=== PATIENT | female | born 1980 | race African-American/Black ===

== ENCOUNTER 2019-09-01 11:00 | Emergency (ER) | payer MEDICAID, OTHER ==
[~2019-09-01] VITALS: Ht 167.6 cm; Wt 100.0 kg
[2019-09-01 12:22] LABS: BASOPHILS % 0.8 % (0.0-2.0); EOSINOPHILS % 5.1 % (0.0-5.0); HEMATOCRIT. 36.7 % (36.0-48.0); HEMOGLOBIN. 12.5 g/dL (12.0-16.0); LYMPHOCYTES % 40.3 % (20.0-50.0); MEAN CORPUSCULAR HEMOGLOBIN 31.6 pg (28.0-32.0); MEAN CORPUSCULAR VOLUME 92.3 fL (81.0-99.0); MEAN PLATELET VOLUME 7.5 fl (7.4-10.4); MONOCYTES % 8.8 % (2.0-8.0); PLATELET 278 x1000/uL (130-400); RED BLOOD CELL COUNT 3.97 mill/uL (4.2-5.4)
[2019-09-01 12:25] LABS: CLARITY URINE TURBID (CLEAR); COLOR URINE DARK YELLOW (YELLOW); KETONES URINE TRACE (NEGATIVE); LEUKOCYTE ESTERASE URINE 2+ (NEGATIVE); NITRITE URINE POSITIVE (NEGATIVE); OCCULT BLOOD URINE 3+ (NEGATIVE); PH URINE 6.5 (4.5-8.0); PROTEIN URINE 1+ (NEGATIVE); SPECIFIC GRAVITY URINE 1.033 (1.005-1.030)
[2019-09-01 12:28] LABS: CHLORIDE 105 mEq/L (98-107)
[2019-09-01 12:38] LABS: B-HCG QUANTITATIVE 39 mIU/mL (<3)
[2019-09-01 14:47] VITALS: BP 118/75
== END 2019-09-01 14:49 | disposition home or self-care (01) ==
LOC: ER 11:00
DX: O20.0 Threatened abortion (principal); O99.611 Diseases of the digestive system complicating pregnancy, first trimester; N30.00 Acute cystitis without hematuria; O34.11 Maternal care for benign tumor of corpus uteri, first trimester; O26.891 Other specified pregnancy related conditions, first trimester; Z3A.01 Less than 8 weeks gestation of pregnancy; Z88.8 Allergy status to other drugs, medicaments and biological substances; Z98.890 Other specified postprocedural states
CPT/HCPCS: 36415; 76830; 76856; 81003; 81025; 84702; 86850; 86900; 87077; 87186; 99284